=== PATIENT | female | born 1990 | race Caucasian/White ===

== ENCOUNTER → 2020-12-07 12:07 | Outpatient (BNVA) | payer BC, SELFPAY | PROVIDERS: Family Provider Family Medicine; PCP Family Medicine; Visit Provider Nurse Practitioner | DX: R39.9 Unspecified symptoms and signs involving the genitourinary system (principal); N39.0 Urinary tract infection, site not specified | CPT/HCPCS: 81000 ==

== ENCOUNTER → 2020-12-10 13:17 | Outpatient (BNVA) | payer BC, SELFPAY | PROVIDERS: Family Provider Family Medicine; PCP Family Medicine; Visit Provider Obstetrics & Gynecology | DX: Z12.4 Encounter for screening for malignant neoplasm of cervix (principal) | CPT/HCPCS: 88175 ==

== ENCOUNTER → 2021-07-04 09:15 | Outpatient (BNVA) | payer BC, SELFPAY | PROVIDERS: Family Provider Family Medicine; PCP Family Medicine; Visit Provider Nurse Practitioner | DX: J02.9 Acute pharyngitis, unspecified (principal) | CPT/HCPCS: 87070 ==

== ENCOUNTER → 2021-11-20 16:33 | Outpatient (BNVA) | payer BC, SELFPAY | PROVIDERS: Family Provider Family Medicine; PCP Family Medicine; Visit Provider Registered Nurse Neonatal Intensive Care | DX: Z20.822 Contact with and (suspected) exposure to COVID-19 (principal) | CPT/HCPCS: 87635 ==

== ENCOUNTER → 2021-11-21 20:14 | Outpatient (BNVA) | payer BC, SELFPAY | PROVIDERS: Family Provider Family Medicine; PCP Family Medicine; Visit Provider Registered Nurse Neonatal Intensive Care | DX: B34.9 Viral infection, unspecified (principal) | CPT/HCPCS: 87801 ==

== ENCOUNTER → 2022-07-01 09:01 | Outpatient (BNVA) | payer BC, SELFPAY | PROVIDERS: Family Provider Family Medicine; PCP Family Medicine; Visit Provider Nurse Practitioner | DX: R30.0 Dysuria (principal); R30.9 Painful micturition, unspecified; R50.9 Fever, unspecified | CPT/HCPCS: 81000; 87077; 87086; 87184 ==

== ENCOUNTER → 2022-08-06 08:21 | Outpatient (BNVA) | payer BC, SELFPAY | PROVIDERS: Family Provider Family Medicine; PCP Family Medicine; Visit Provider Family Medicine | DX: Z00.00 Encounter for general adult medical examination without abnormal findings (principal) | CPT/HCPCS: 80053; 82306; 83735; 84439; 84443; 84481; 85025 ==

== ENCOUNTER → 2023-09-16 08:59 | Outpatient (BNVA) | payer BC, SELFPAY | PROVIDERS: Family Provider Family Medicine; PCP Family Medicine; Visit Provider Family Medicine | DX: Z01.419 Encounter for gynecological examination (general) (routine) without abnormal findings (principal); E78.01 Familial hypercholesterolemia; Z12.4 Encounter for screening for malignant neoplasm of cervix; R79.89 Other specified abnormal findings of blood chemistry | CPT/HCPCS: 80061; 87624 ==

== ENCOUNTER → 2023-10-09 07:10 | Outpatient (BNVA) | payer BC, SELFPAY | PROVIDERS: Family Provider Family Medicine; PCP Family Medicine; Visit Provider Family Medicine | DX: Z12.4 Encounter for screening for malignant neoplasm of cervix (principal); Z01.419 Encounter for gynecological examination (general) (routine) without abnormal findings | CPT/HCPCS: 87624 ==

== ENCOUNTER 2023-11-16 11:27 | Outpatient (CLI) | payer BC, SELFPAY ==
--- NOTE | 2023-11-16 11:45 | MR_ITS ---
WS: [id number] MRI OF THE FEMUR WITHOUT GADOLINIUM ENHANCEMENT. INDICATION: Hamstring injury TECHNIQUE: Axial PD, T2, coronal STIR, coronal T1, sagittal T1, sagittal STIR. FINDINGS: Normal bone marrow signal in the RIGHT femoral head and neck. Normal bone marrow signal in the RIGHT femur. Partially visualized pubic rami demonstrate normal bone marrow signal. No acute frac tures. No inguinal lymphadenopathy. Increased T2 signal with fluid and edema involving the the origins of the semimembranosus tendon, sigifredo g head of the biceps femoris, as well as the semitendinosus at the ischial tuberosity consistent with acute hamstring tear. No evidence of bony avulsion. No significant edema in the muscle bellies. Dist al insertions not included on this study. MR/MR femur RT wo con* [id number] IMPRESSION: Increased T2 signal with fluid and edema involving the tendon origi ns at the RIGHT ischial tuberosity compatible with hamstring injury described a ousmane.
== END 2023-11-16 11:28 | disposition home or self-care (01) ==
LOC: RAD 11:27
PROVIDERS: Family Provider Family Medicine; PCP Family Medicine; Visit Provider Family Medicine
DX: S76.311A Strain of muscle, fascia and tendon of the posterior muscle group at thigh level, right thigh, initial encounter (principal)
CPT/HCPCS: 73718

== ENCOUNTER → 2024-02-23 12:36 | Outpatient (BNVA) | payer BC, SELFPAY | PROVIDERS: Family Provider Family Medicine; PCP Family Medicine; Visit Provider Family Medicine | DX: O02.0 Blighted ovum and nonhydatidiform mole (principal) | CPT/HCPCS: 81025; 84702 ==

== ENCOUNTER → 2024-06-15 07:57 | Outpatient (BNVA) | payer BC, SELFPAY | PROVIDERS: Family Provider Family Medicine; PCP Family Medicine; Visit Provider Family Medicine | DX: Z34.90 Encounter for supervision of normal pregnancy, unspecified, unspecified trimester (principal) | CPT/HCPCS: 84703 ==

== ENCOUNTER → 2024-07-05 13:52 | Outpatient (BNVA) | payer BC, SELFPAY | PROVIDERS: Family Provider Family Medicine; PCP Family Medicine; Visit Provider Nurse Practitioner Women's Health | DX: N91.2 Amenorrhea, unspecified (principal) | CPT/HCPCS: 81025 ==

== ENCOUNTER → 2024-07-15 10:23 | Outpatient (BNVA) | payer BC, SELFPAY | PROVIDERS: Family Provider Family Medicine; PCP Family Medicine; Visit Provider Nurse Practitioner Women's Health | DX: Z34.81 Encounter for supervision of other normal pregnancy, first trimester (principal); Z3A.08 8 weeks gestation of pregnancy | CPT/HCPCS: 76801 ==

== ENCOUNTER → 2024-07-26 10:53 | Outpatient (BNVA) | payer BC, SELFPAY | PROVIDERS: Family Provider Family Medicine; PCP Family Medicine; Visit Provider Nurse Practitioner Women's Health | DX: Z34.80 Encounter for supervision of other normal pregnancy, unspecified trimester (principal); Z34.90 Encounter for supervision of normal pregnancy, unspecified, unspecified trimester | CPT/HCPCS: 80307; 84315; 84443; 85025; 86592; 86762; 86803; 86850; 86900; 87086; 87340; 87491; 87591; 87661; 87806 ==

== ENCOUNTER → 2024-08-10 14:14 | Outpatient (BNVA) | payer BC, SELFPAY | PROVIDERS: Family Provider Family Medicine; PCP Family Medicine; Visit Provider Obstetrics & Gynecology | DX: Z87.59 Personal history of other complications of pregnancy, childbirth and the puerperium (principal) | CPT/HCPCS: 84315 ==

== ENCOUNTER → 2024-09-06 08:29 | Outpatient (BNVA) | payer BC, SELFPAY | PROVIDERS: Family Provider Family Medicine; PCP Family Medicine; Visit Provider Nurse Practitioner Women's Health | DX: O34.219 Maternal care for unspecified type scar from previous cesarean delivery (principal) | CPT/HCPCS: 82105; 84315 ==

== ENCOUNTER → 2024-09-16 08:54 | Outpatient (BNVA) | payer BC, SELFPAY | PROVIDERS: Family Provider Family Medicine; PCP Family Medicine; Visit Provider Obstetrics & Gynecology | DX: Z34.90 Encounter for supervision of normal pregnancy, unspecified, unspecified trimester (principal) | CPT/HCPCS: 86787 ==

== ENCOUNTER → 2024-10-04 14:17 | Outpatient (BNVA) | payer BC, SELFPAY | PROVIDERS: Family Provider Family Medicine; PCP Family Medicine; Visit Provider Obstetrics & Gynecology | DX: O26.892 Other specified pregnancy related conditions, second trimester (principal); Z3A.20 20 weeks gestation of pregnancy | CPT/HCPCS: 76805 ==

== ENCOUNTER → 2024-10-10 10:46 | Outpatient (BNVA) | payer BC, SELFPAY | PROVIDERS: Family Provider Family Medicine; PCP Family Medicine; Visit Provider Obstetrics & Gynecology | DX: O34.219 Maternal care for unspecified type scar from previous cesarean delivery (principal); Z87.59 Personal history of other complications of pregnancy, childbirth and the puerperium | CPT/HCPCS: 84315 ==

== ENCOUNTER 2024-10-31 15:03 | Outpatient (CLI) | payer BC, SELFPAY ==
--- NOTE | 2024-10-31 15:30 | US_ITS ---
WS: [id number] THYROID ULTRASOUND HISTORY: Thyromegaly. COMPARISON: None available. Right lobe: 2.0 cm x 1.1 cm x 4.2 cm (w x ap x l). Volume: 4.5 cm3. Normal size and echotexture. No significant are dominant nodules are present. Left lobe: 1.8 cm x 1.2 cm x 4.5 cm (w x ap x l). Volume: 4.5 cm3. Normal sized gland. Mixed nodule with peripheral calcification and a few punctate foci in the superior LEFT thyroid. There may be 2 separate or a single lobulated nodule in the mid gland. There is shadowing and edge calcification from 1 of these nodules. The adjacent nodule has punctate foci. The entire nodule measures 1.1 x 0.6 x 1.4 cm. Isthmus: 0.3 cm. US/US thyroid [id number] IMPRESSION: 1. TI-RADS 4; moderately suspicious LEFT thyroid nodule. TI-RADS recommends fo llow-up in 1 year based upon size of the nodule and the imaging characteristics . If this nodule increases to 1.5 cm or greater ultrasound-guided biopsy can be performed. 2. No thyromegaly.
== END 2024-10-31 15:04 | disposition home or self-care (01) ==
LOC: RAD 15:04
PROVIDERS: Family Provider Family Medicine; PCP Family Medicine; Visit Provider Internal Medicine
DX: E01.0 Iodine-deficiency related diffuse (endemic) goiter (principal); Z34.90 Encounter for supervision of normal pregnancy, unspecified, unspecified trimester; R93.89 Abnormal findings on diagnostic imaging of other specified body structures
CPT/HCPCS: 76536

== ENCOUNTER → 2024-11-09 14:13 | Outpatient (BNVA) | payer BC, SELFPAY | PROVIDERS: Family Provider Family Medicine; PCP Family Medicine; Visit Provider Nurse Practitioner Women's Health | DX: Z34.80 Encounter for supervision of other normal pregnancy, unspecified trimester (principal) | CPT/HCPCS: 84315 ==

== ENCOUNTER → 2024-11-28 14:12 | Outpatient (BNVA) | payer BC, SELFPAY | PROVIDERS: Family Provider Family Medicine; PCP Family Medicine; Visit Provider Obstetrics & Gynecology | DX: O34.219 Maternal care for unspecified type scar from previous cesarean delivery (principal) | CPT/HCPCS: 82950; 84315; 85025 ==

== ENCOUNTER → 2024-12-12 14:17 | Outpatient (BNVA) | payer BC, SELFPAY | PROVIDERS: Family Provider Family Medicine; PCP Family Medicine; Visit Provider Nurse Practitioner Women's Health | DX: Z34.90 Encounter for supervision of normal pregnancy, unspecified, unspecified trimester (principal) | CPT/HCPCS: 84315 ==

== ENCOUNTER → 2024-12-26 14:34 | Outpatient (BNVA) | payer BC, SELFPAY | PROVIDERS: Family Provider Family Medicine; PCP Family Medicine; Visit Provider Obstetrics & Gynecology | DX: O34.219 Maternal care for unspecified type scar from previous cesarean delivery (principal) | CPT/HCPCS: 84315 ==

== ENCOUNTER → 2025-01-11 07:54 | Outpatient (BNVA) | payer BC, SELFPAY | PROVIDERS: Family Provider Family Medicine; PCP Family Medicine; Visit Provider Obstetrics & Gynecology | DX: O34.219 Maternal care for unspecified type scar from previous cesarean delivery (principal) | CPT/HCPCS: 84315 ==

== ENCOUNTER → 2025-01-24 12:22 | Outpatient (BNVA) | payer BC, SELFPAY | PROVIDERS: Family Provider Family Medicine; PCP Family Medicine; Visit Provider Nurse Practitioner Women's Health | DX: Z34.90 Encounter for supervision of normal pregnancy, unspecified, unspecified trimester (principal); Z3A.36 36 weeks gestation of pregnancy | CPT/HCPCS: 76816; 84315; 87081 ==

== ENCOUNTER → 2025-01-30 14:14 | Outpatient (BNVA) | payer BC, SELFPAY | PROVIDERS: Family Provider Family Medicine; PCP Family Medicine; Visit Provider Obstetrics & Gynecology | DX: O34.219 Maternal care for unspecified type scar from previous cesarean delivery (principal) | CPT/HCPCS: 84315 ==

== ENCOUNTER 2025-02-06 08:37 | Outpatient (CLI) | payer BC, SELFPAY ==
[2025-02-06 08:40] VITALS: BMI 33.6
[2025-02-06 08:51] VITALS: BP 134/83; PULSE 98
[2025-02-06 09:02] LABS: Glucose Urine UA Negative (Normal); Nitrate Urine Negative (Negative); Specific Gravity, Urine 1.004 (1.005-1.030)
[2025-02-06 09:06] VITALS: BP 129/78; PULSE 92
== END 2025-02-06 09:31 | disposition home or self-care (01) ==
LOC: OPOB 08:42 → OBGYN 08:43
PROVIDERS: Family Provider Family Medicine; PCP Family Medicine; Visit Provider Obstetrics & Gynecology
DX: O26.899 Other specified pregnancy related conditions, unspecified trimester (principal); Z3A.00 Weeks of gestation of pregnancy not specified; R52 Pain, unspecified
CPT/HCPCS: 59025; 81001; 87086; 99211

== ENCOUNTER → 2025-02-13 13:48 | Outpatient (BNVA) | payer BC, SELFPAY | PROVIDERS: Family Provider Family Medicine; PCP Family Medicine; Visit Provider Nurse Practitioner Women's Health | DX: O34.219 Maternal care for unspecified type scar from previous cesarean delivery (principal) | CPT/HCPCS: 84315 ==

== ENCOUNTER → 2025-02-20 13:43 | Outpatient (BNVA) | payer BC, SELFPAY | PROVIDERS: Family Provider Family Medicine; PCP Family Medicine; Visit Provider Obstetrics & Gynecology | DX: O34.219 Maternal care for unspecified type scar from previous cesarean delivery (principal); Z87.59 Personal history of other complications of pregnancy, childbirth and the puerperium | CPT/HCPCS: 84315 ==

== ENCOUNTER 2025-02-24 19:00 | Inpatient (IN) | payer BC, SELFPAY ==
[2025-02-24] VITALS (68 sets, daily range): BP systolic 115–153; BP diastolic 55–90; PULSE 80–136; RESP 16–18; TEMP 36.2–37.2; O2SAT 91–100; BMI 34.0
[2025-02-24 08:04] LABS: Hematocrit 36.5 % (36-47); Hemoglobin 12.50 g/dL (11.27-16.99); Mean Corpuscular HGB Conc 34.2 g/dL (30-55); Mean Corpuscular Hemoglobin 31.3 pg (27-33); Mean Corpuscular Volume 91.5 fl (85-98); Nucleated Red Blood Cells % 0 %; Platelet Count 182 10^3/cmm (157-399); Red Blood Count 3.99 10^6/uL (3.85-5.65); White Blood Count 10.69 10^3/uL (3.29-11.43)
[2025-02-24] MEDS: oxytocin 30 UNIT/500 ML BAG IV (08:28)
[2025-02-24] MEDS: fentaNYL 50 mcg/mL INJ 2mL IVP ×2 (17:56→19:15)
[2025-02-24] MEDS: ROPivacaine premix 200 MG/100 ML PREMIX 13 MG EPIDURAL (21:30)
[2025-02-25] VITALS (24 sets, daily range): BP systolic 103–154; BP diastolic 53–95; PULSE 90–131; RESP 16–18; TEMP 36.3–37.2; O2SAT 96–99
--- NOTE | 2025-02-25 02:45 | PM.DELIVERY ---
Delivery Note: Date of delivery: February 25, 2025 Pre-delivery diagnoses: 40 w 5 d previous x one desires trial of labor induction of labor Post-delivery diagnoses: 40 w 5 d previous x one desires trial of labor induction of labor vaginal delivery third-degree perineal laceration, repaired Procedure: induction of labor vaginal delivery repair of third-degree perineal laceration Op report anesthesia: Epidural Delivering Physician: Jd Roman MD Estimated blood loss (mL): 300 Findings: , vigorous male Cord gases and blood obtained Normal placenta and cord No episiotomy Third-degree perineal laceration repaired in layers EBL: 300 cc No complications Pre-Delivery Course: normal labor course fetus reassuring throughout Delivery: vaginal Post-Delivery Status: good History History History 2 Term 1 0 Miscarriages/Ectopic 0 Living Children 2 A&P Assessment and plan 1. Vaginal delivery: PDMP PDMP Reviewed: Not Reviewed Coding Level of Care Code Acute Code for Chg Fwd Diagnoses Vaginal delivery O80
[2025-02-25] MEDS: benzocaine-menthol 78 gm Canister 1 SPRAY TOPICAL (05:35)
[2025-02-25] MEDS: PRENATAL VIT NO.130/IRON/FOLIC 1 EACH TABLET PO (07:37)
[2025-02-25 14:51] LABS: Hematocrit 31.3 % (36-47); Hemoglobin 10.80 g/dL (11.27-16.99); Mean Corpuscular HGB Conc 34.5 g/dL (30-55); Mean Corpuscular Hemoglobin 32.4 pg (27-33); Mean Corpuscular Volume 94.0 fl (85-98); Platelet Count 166 10^3/cmm (157-399); Red Blood Count 3.33 10^6/uL (3.85-5.65); White Blood Count 16.45 10^3/uL (3.29-11.43)
[2025-02-26 04:00] VITALS: BP 121/78; PULSE 91; RESP 17; TEMP 36.6; O2SAT 95
[2025-02-26] MEDS: PRENATAL VIT NO.130/IRON/FOLIC 1 EACH TABLET PO (05:53)
[2025-02-26 12:36] VITALS: BP 135/92; PULSE 82; RESP 16; TEMP 36.8; O2SAT 95
--- NOTE | 2025-02-26 12:40 | P.HP_ITS ---
Providers/Chief Complaint 2 Admitting Physician: Jd Roman MD Primary RESEARCH SCIENTIST: Jd Roman MD Primary Care Provider: Huong Hassan MD Chief Complaint: IOL HPI RESEARCH SCIENTIST History of Present Illness Tina Corey is a 34 year old female L2 EDC February 19, 2025 At 40 w 5 d No complications Admitted for induction of labor No c/o + active movements h/o LTCS x one Present Details : 2 Para: 1 Date of Last Menstrual Period: 05/15/24 Calculated Date of Delivery: 02/19/25 Gestational Age Based on Last Menstrual Period: 41 Labs Rubella: Immune RPR: Negative GBS: Negative Medications/Allergies Home Medications ?Medication ?Instructions ?Recorded ?Confirmed ?Last Taken ?Type prenat.vits,jelly,sed-nqsa-obljd 1 tab PO DAILY 12/16/21 02/20/25 Unknown History Lactobacillus cap PO 10/19/24 02/20/25 Unk nown History acidophil,plantar-Bifido no.7 25 billion cell capsule (up4 Probiotics Adult 50 Plus) Allergies Allergy/AdvReac Type Severity Reaction Status Date / Time No Known Allergies Allergy Verified 02/13/25 13:42 PFSH RESEARCH SCIENTIST 2 PFSH: Medical History (Updated 02/25/25 @ 09:46 by Jd Roman MD) No pertinent past medical history Denies diabetes, asthma, hypertension, seizures, DVT/PE Primary care provider: Dr. Cooper Surgical History History of surgical removal of ganglion cyst from right wrist x 2 S/P section (~2017) Low transverse section. Diagnosis: Arrest of active phase of labor, dichorionic diamniotic twin gestation, chorioamnionitis. Performed by Dr. Jerrell Ren at [facility] in [place], [place]. Confirmed low transverse incision with a 2 layer closure of the uterus. Family History Sister Diabetes type 1 Thyroid disease Mother Hypertension Stroke Migraines Breast cancer Hyperlipidemia Family/Other Colon cancer maternal aunt, diagnosed in her 50s Grandmother Hyperlipidemia Hypertension Denies family history of Ovarian cancer Prostate cancer CAD (coronary artery disease) Heart disease Uterine cancer Social History Smoking and tobacco/nicotine status: former use of tobacco/nicotine Alcohol intake: current Alcohol intake frequency: holidays/special occasions only Substance/Drug Use: never Lives independently: No Household members: spouse and children Marital status: Number of children: 2 Current occupational status: employed 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 Will discuss further with Dr Roman at 12 week appointment. Specific Issues/Plans * * HX OF FOR CHORIO AND FAILURE TO PROGRESS * HX OF TWIN * NAUSEA AND VOMITING: taking diclegis daily * DIZZINESS: notices dizziness with positional changes and BP drops * HEADACHE: can sometimes get it to go away with sleep, last resort tylenol and caffiene * HX OF GESTATIONAL HYPERTENSION: emerged during labor Vitals/I&O/Wt Last Vital Signs Temp 98.3 F 02/26/25 12:36 Pulse 82 02/26/25 12:36 Resp 16 02/26/25 12:36 BP 135/92 02/26/25 12:36 Pulse Ox 95 02/26/25 12:36 O2 Del Method Room Air 02/26/25 12:36 Physical Exam 2 Narrative: Weight 217 lbs; 5?7? VS normal General awake, alert, appropriate Lungs: clear Cor: RRR FH 37 cm, cephalic Cervix: 1 / 50 / -3 Ext: no edema External monitor: heart tracing good variability, + accelerations Urinary Catheter Management: Soriano Latex Free: Cath Placed During This Visit: yes, but has since been removed by the nurse Reason for Continuing Indwelling Catheter: Decision to DC Catheter Urinary Catheter Date of Insertion: 02/24/25 Urinary Catheter Time of Insertion: 22:41 Date Urinary Catheter Removed: 02/25/25 Time Urinary Catheter Discontinued: 01:05 Data 02/25/25 14:33 Results Labs OB ([facility]): 2 Obstetrics US 01/24/25 Blood Type B Positive 02/24/25 Antibody Screen Negative 02/24/25 Hct, (36-47) 31.3 % L 02/25/25 Hgb, (11.27-16.99) 10.80 g/dL L 02/25/25 Rho(D) Type Rh positive 02/24/25 Plt Count, (157-399) 166 10^3/cmm 02/25/25 Hep Bs Antigen, (Nonreactive) Non-reactive 07/26/24 Hepatitis C Antibody, (Nonreactive) Non-reactive 09/16 Rubella IgG Antibody, (0.0-10.0) 224.0 IU/mL H 5 RPR, (Nonreactive) Nonreactive 07/26/24 HIV 1&2 Ab & HIV 1 Ag, (Non-Reactiv) Non-reactive 09/16 TSH, (0.27-4.20) 0.68 uIU/mL 07/26/24 Glucose 1 Hr 50 gm, (85-140) 97 mg/dL 11/28/24 VZV IgG Antibody 9.08 S/CO 09/16/24 Ser , Semi-Qnt 1.00 mIU/mL 02/23/24 HCG, Qual, (Negative) Positive H 07/05/24 Urine Opiates Screen, (Negative) Negative ng/mL 5 Ur Barbiturates Screen, (Negative) Negative ng/mL 07/26 Ur Phencyclidine Scrn, (Negative) Negative ng/mL Ur Amphetamines Screen, (Negative) Negative ng/mL 07/26 U Benzodiazepines Scrn, (Negative) Negative ng/mL 07/26 Urine Cocaine Screen, (Negative) Negative ng/mL 5 U Marijuana (THC) Screen, (Negative) Negative ng/mL 09/16 Micro Urine Specimen 02/06/25 Pap Smear Interpret See note 10/09/23 A&P Assessment and plan 1. : 40 w 5 d Admitted for induction of labor h/o LTCS x one Rh + 2. with history of section, antepartum: h/o LTCS x one patient wants trial of labor does not want repeat The patient was counseled about TOLAC/. The decision to have a TOLAC/ is her decision, and the option of an elective repeat has been discussed with the patient. The risk of a uterine rupture during a TOLAC/ in someone who has had a prior incision on the lower, noncontracting part of my uterus, is estimated to be around 1-3%. Vaginal after () is associated with a higher risk of harm to the baby. In particular, she was informed that if the uterus ruptures during a TOLAC/, even if the baby can be delivered via emergency in the most expeditious manner, it may not be sufficient to prevent the of or permanent brain injury to the baby. Other risks include, but not limited to, a uterine rupture may also result in excessive bleeding which can lead to severe injury to the patient, such as hysterectomy, and other consequences. Patient understands the risks and still wants to proceed with a trial of labor. PDMP PDMP Reviewed: Not Reviewed Attestations 2 Medical Necessity Statement*: patient at 40 w 5 d, admitted for induction of labor Coding Level of Care Code Acute Code for Chg Fwd Diagnoses Z34.90 with history of section, antepartum O34.219
--- NOTE | 2025-02-26 14:47 | PM.OBGYDC ---
Discharge Providers RECORDS MANAGEMENT MANAGER Date of Admission: 02/24/25 Date of Discharge: 02/26/25 Attending Provider at Admission: Jd Roman MD Attending Provider at Discharge: Jd Roman MD Consults: none Primary RECORDS MANAGEMENT MANAGER: Jd Roman MD Primary Care Provider: Huong Hassan MD Diagnoses at Discharge Discharge Diagnosis 1. , unspecified gestational age: Details from hospital stay: 34 y.o. L2 At 40 w 5 d No complications Admitted for induction of labor h/o LTCS x one patient wanted trial of labor patient was given pitocin patient progressed to complete dilatation fetus was reassuring throughout patient had vaginal delivery of vigorous without any complications She had repair of third-degree perineal lacerations Patient did well and was discharged to home on the first day 2. with history of section, antepartum: Reason for Visit Reason for Visit: IOL Brief History: 34 y.o. L2 At 40 w 5 d No complications Admitted for induction of labor h/o LTCS x one patient wanted trial of labor Hospital Course Hospital Course 34 y.o. L2 At 40 w 5 d No complications Admitted for induction of labor h/o LTCS x one patient wanted trial of labor patient was given pitocin patient progressed to complete dilatation fetus was reassuring throughout patient had vaginal delivery of vigorous infant without any complications She had repair of third-degree perineal lacerations Patient did well and was discharged to home on the first day Information Peripartum Data: Infant Delivery Method: Vaginal Laceration description: Perineal - 3rd Degree Episiotomy description: None complications: none Physical Exam Narrative: afebrile, VS normal comfortable, awake, alert Lungs: clear Cor: RRR Abd: soft, nontender. fundus firm Ext: no edema; nontender Urinary Catheter Management: Soriano Latex Free: Cath Placed During This Visit: yes, but has since been removed by the nurse Reason for Continuing Indwelling Catheter: Decision to DC Catheter Urinary Catheter Date of Insertion: 02/24/25 Urinary Catheter Time of Insertion: 22:41 Date Urinary Catheter Removed: 02/25/25 Time Urinary Catheter Discontinued: 01:05 History History History 2 Term 1 0 Miscarriages/Ectopic 0 Living Children 2 Discharge Data Studies Completed and Pending Pending at discharge Category Date Time Status High Risk PP Hemorrhage Stat Lab 02/24/25 09:07 Received Laboratory Results WBC 16.45 10^3/uL (3.29-11.43) H 02/25/25 14:33 RBC 3.33 10^6/uL (3.85-5.65) L 02/25/25 14:33 Hgb 10.80 g/dL (11.27-16.99) L 02/25/25 14:33 Hct 31.3 % (36-47) L 02/25/25 14:33 MCV 94.0 fl (85-98) 02/25/25 14:33 MCH 32.4 pg (27-33) 02/25/25 14:33 MCHC 34.5 g/dL (30-55) 02/25/25 14:33 RDW 13.2 % (12.1-15.1) 02/25/25 14:33 Plt Count 166 10^3/cmm (157-399) 02/25/25 14:33 MPV 11.2 fL (7.4-10.4) H 02/25/25 14:33 Neut % (Auto) 75.7 % 02/24/25 07:45 Lymph % (Auto) 15.3 % 02/24/25 07:45 [place] % (Auto) 7.5 % 02/24/25 07:45 Eos % (Auto) 0.7 % 02/24/25 07:45 Baso % (Auto) 0.2 % 02/24/25 07:45 Neut # (Auto) 8.10 10^3/uL (1.8-7.7) H 02/24/25 07:45 Lymph # (Auto) 1.6 10^3/uL (0.8-4.8) 02/24/25 07:45 [place] # (Auto) 0.8 10^3/uL (0.2-0.9) 02/24/25 07:45 Eos # (Auto) 0.1 10^3/uL (0.0-0.8) 02/24/25 07:45 Baso # (Auto) 0.0 10^3/uL (0.0-0.1) 02/24/25 07:45 Nucleated RBC % (auto) 0 % 02/24/25 07:45 Nucleated RBCs # 0.0 /100WBC 02/24/25 07:45 Blood Type B Positive 02/24/25 07:55 Rho(D) Type Rh positive 02/24/25 07:55 Antibody Screen Negative 02/24/25 07:55 Procedures Performed induction of labor vaginal delivery repair of third-degree perineal laceration Vitals Last Vital Signs Temp 98.3 F 02/26/25 12:36 Pulse 82 02/26/25 12:36 Resp 16 02/26/25 12:36 BP 135/92 02/26/25 12:36 Pulse Ox 95 02/26/25 12:36 O2 Del Method Room Air 02/26/25 12:36 Results Labs OB ([facility]): Obstetrics US 01/24/25 Blood Type B Positive 02/24/25 Antibody Screen Negative 02/24/25 Hct, (36-47) 31.3 % L 02/25/25 Hgb, (11.27-16.99) 10.80 g/dL L 02/25/25 Rho(D) Type Rh positive 02/24/25 Plt Count, (157-399) 166 10^3/cmm 02/25/25 Hep Bs Antigen, (Nonreactive) Non-reactive 07/26/24 Hepatitis C Antibody, (Nonreactive) Non-reactive 07/26/24 Rubella IgG Antibody, (0.0-10.0) 224.0 IU/mL H 07/26/24 RPR, (Nonreactive) Nonreactive 07/26/24 HIV 1&2 Ab & HIV 1 Ag, (Non-Reactiv) Non-reactive 07/26/24 TSH, (0.27-4.20) 0.68 uIU/mL 07/26/24 Glucose 1 Hr 50 gm, (85-140) 97 mg/dL 11/28/24 VZV IgG Antibody 9.08 S/CO 09/16/24 Ser , Semi-Qnt 1.00 mIU/mL 02/23/24 HCG, Qual, (Negative) Positive H 07/05/24 Urine Opiates Screen, (Negative) Negative ng/mL 07/26/24 Ur Barbiturates Screen, (Negative) Negative ng/mL 07/26/24 Ur Phencyclidine Scrn, (Negative) Negative ng/mL 07/26/24 Ur Amphetamines Screen, (Negative) Negative ng/mL 07/26/24 U Benzodiazepines Scrn, (Negative) Negative ng/mL 07/26/24 Urine Cocaine Screen, (Negative) Negative ng/mL 07/26/24 U Marijuana (THC) Screen, (Negative) Negative ng/mL 07/26/24 Micro Urine Specimen 02/06/25 Pap Smear Interpret See note 10/09/23 Discharge Plan Discharge Patient Disposition: Home Condition: Stable Prescriptions: Continued prenat.vits,jelly,odf-biby-vshar Tablet 1 tab PO DAILY up4 Probiotics Adult 50 Plus 25 billion cell capsule PO Discharge Order = DC NOW: Discharge Order (Routine); Ordered 02/26/25 Ordered By: Jd Roman Referrals: Jd Roman MD [Physician, RECORDS MANAGEMENT MANAGER] - 6 Weeks Discharge Diet: Usual diet Discharge Activity: Increase activity as tolerated Patient Instructions: Depression (GEN), Bleeding (GEN), OB Food/Drug Interaction Guide, OB Care at Home, Opioid Safety, OB Vaginal Deliveries - [facility], Patient Portal & Mil[facility] Instructions, Abnormal Bleeding Activity Restrictions/Additional Instructions: Return for followup in two weeks Discharge Attestations RECORDS MANAGEMENT MANAGER Time Spent in Discharge Care*: less than 30 min Coding Level of Care Code Acute Code for Chg Fwd Diagnoses , unspecified gestational age Z34.90 Weeks of gestation: unspecified with history of section, antepartum O34.219
[2025-02-27 09:08] LABS: High Risk PP Hemorrhage BBK Notified
== END 2025-02-26 12:55 | disposition home or self-care (01) | DRG 768 ==
LOC: OPOB 02-25 01:59 → OBGYN 02-25 01:59
PROVIDERS: Admitting Provider Obstetrics & Gynecology; PCP Family Medicine; Visit Provider Obstetrics & Gynecology
DX: O48.0 Post-term pregnancy (principal); Z37.0 Single live birth; O70.20 Third degree perineal laceration during delivery, unspecified; Z3A.40 40 weeks gestation of pregnancy; O34.211 Maternal care for low transverse scar from previous cesarean delivery; N85.8 Other specified noninflammatory disorders of uterus
CPT/HCPCS: 36415; 51702; 59025; 59409; 85025; 85027; 86850; 86900; 96374; J2590; J2795; J3010; J7030; J7121; J9999

== ENCOUNTER → 2025-03-05 16:49 | Outpatient (BNVA) | payer BC, SELFPAY | PROVIDERS: PCP Family Medicine; Visit Provider Emergency Medicine | DX: R50.9 Fever, unspecified (principal); R30.0 Dysuria | CPT/HCPCS: 81000; 87071; 87400; 87420; 87426; 87880 ==

== ENCOUNTER 2025-05-01 09:58 | Outpatient (RCR) | payer BC, SELFPAY | END 2025-05-24 23:59 | disposition home or self-care (01) | LOC: SPT 09:58 | PROVIDERS: PCP Family Medicine; Visit Provider Nurse Practitioner Women's Health | DX: O70.20 Third degree perineal laceration during delivery, unspecified (principal); N39.46 Mixed incontinence | CPT/HCPCS: 97110; 97161; 97530 ==